=== PATIENT | female | born 1965 | race Caucasian/White ===

== ENCOUNTER 2017-05-31 12:43 | Emergency (ER) | payer MEDICAID ==
[2017-05-31 12:52] VITALS: BP 156/89
== END 2017-05-31 13:28 | disposition left against medical advice (07) ==
DX: Z53.21 Procedure and treatment not carried out due to patient leaving prior to being seen by health care provider (principal)

== ENCOUNTER 2017-11-30 10:19 | Emergency (ER) | payer MEDICAID ==
[2017-11-30] MEDS ORDERED: LIDOCAINE 4%/MENTHOL 1% PATCH TD ONE (11:30)
--- NOTE | 2017-11-30 11:32 | EDPHY ---
H & P Time Seen by Provider: 11/30/17 10:57 HPI/ROS: CHIEF COMPLAINT: 52-year-old female here with history of chronic sciatica complaining of recurrence of left buttock pain HISTORY OF PRESENT ILLNESS: 52-year-old female with known sciatica here with recurrence of her left buttock and leg pain. She denies any saddle paresthesias , leg numbness, leg weakness, incontinence of bladder or stool. Denies any IV drug use. She has had no fever or burning with urination. ROS As detailed in HPI Smoking Status: Current every day smoker Physical Exam: General: Alert and oriented. Nontoxic appearing. No acute distress HEENT: Pupils PERRLA. No oral lesions. Cardiopulmonary: Regular rate and rhythm. No lower extremity edema Skin: [place] warm and dry. No lesions. Muscle skeletal: Moving all 4 extremities. Equal strength in upper extremities and lower extremities. Ambulatory. Constitutional: Initial Vital Signs Temperature (C) 36.7 C 11/30/17 10:31 Heart Rate 63 11/30/17 10:31 Respiratory Rate 18 11/30/17 10:31 Blood Pressure 151/92 H 11/30/17 10:31 O2 Sat (%) 95 11/30/17 10:31 O2 Delivery Mode Room Air Allergies/Adverse Reactions: aspirin Allergy (Verified 11/30/17 10:34) Home Medications: Medication Instructions Recorded Lidocaine 05/31/17 Motrin (*) 05/31/17 Celexa 11/30/17 Hydrocodone/APAP 5/325 [[place] 1 tab PO Q6 #8 tab 11/30/17 5/325 (*)] Lidocaine [Lidoderm] 1 each TP DAILY #30 adh..patch 11/30/17 Medical Decision Making ED Course/Re-evaluation: 52-year-old female here with recurrence of sciatica symptoms. She was treated with anti-inflammatories and pain medication lidocaine patch. She is ambulatory and has no neurologic deficits or any red flag symptoms to suggest cauda equina or cord compression. Differential Diagnosis: Cauda equina, epidural abscess, UTI, - Data Points Medications Given: Discontinued Medications Miscellaneous Medication (Icy Hot Lidocaine/Menthol 4%/1% Patch) 1 patch TD EDNOW ONE Stop: 11/30/17 11:31 Last Admin: 11/30/17 11:39 Dose: 1 patch Departure - Departure Disposition: Home, Routine, Self-Care Clinical Impression: Sciatica Condition: Good Instructions: Hydrocodone/Acetaminophen (By mouth), Sciatica (ED) Referrals: NONE *PRIMARY CARE P,. [Primary Care Provider] - As per Instructions [facility],. [Clinic] - As per Instructions Stand Alone Forms: Work Excuse Prescriptions: Hydrocodone/APAP 5/325 [[place] 5/325 (*)] 1 tab PO Q6 #8 tab Lidocaine [Lidoderm] 1 each TP DAILY #30 adh..patch
[2017-11-30 11:42] VITALS: BP 133/85
[2017-11-30] MEDS ORDERED: PATCH REMOVAL 1 EA PATCH TD SCH (21:00)
== END 2017-11-30 11:42 | disposition home or self-care (01) ==
DX: M54.32 Sciatica, left side (principal); F17.210 Nicotine dependence, cigarettes, uncomplicated